=== PATIENT | female | born 1955 | race Caucasian/White ===

== ENCOUNTER → 2020-04-25 | Outpatient (CLI) | payer OTHER ==
[2020-04-25 09:18] LABS: ALANINE AMINOTRANSFERASE 21 U/L (0-55); ALKALINE PHOSPHATASE 68 U/L (40-136); BILIRUBIN,TOTAL 0.4 MG/DL (0.1-1.0); BUN/CREATININE RATIO 16; CALCIUM 8.9 MG/DL (8.5-10.1); CARBON DIOXIDE 29 MMOL/L (21-32); CHLORIDE 101 MMOL/L (98-107); CREATININE SERUM 0.76 MG/DL (0.60-1.30); GFR ESTIMATED > 60; GLUCOSE 104 MG/DL (70-105); POTASSIUM 4.1 MMOL/L (3.6-5.0); SODIUM 141 MMOL/L (135-145); TOTAL PROTEIN 6.5 GM/DL (6.4-8.2)
[2020-04-25 09:19] LABS: ALBUMIN 3.8 GM/DL (3.2-4.5)
[2020-04-25 14:33] LABS: TRIGLYCERIDES 60 MG/DL (<150); VLDL CHOLESTEROL 12 MG/DL (5-40)
[2020-04-25 14:38] LABS: CHOLESTEROL 191 MG/DL (< 200)
[2020-04-25 14:39] LABS: HDL CHOLESTEROL 67 MG/DL (40-60)
== END ==
LOC: LAB FS 07:55
PROVIDERS: ATTEND Family Medicine
DX: I10 Essential (primary) hypertension (principal)
CPT/HCPCS: 36415; 80053; 80061

== ENCOUNTER → 2020-04-25 | Outpatient (CLI) | payer OTHER ==
[2020-04-25 09:13] LABS: POTASSIUM 3.9 MMOL/L (3.6-5.0); SODIUM 141 MMOL/L (135-145)
[2020-04-25 09:14] LABS: ALANINE AMINOTRANSFERASE 20 U/L (0-55); ALBUMIN 3.8 GM/DL (3.2-4.5); ALKALINE PHOSPHATASE 69 U/L (40-136); BILIRUBIN,TOTAL 0.4 MG/DL (0.1-1.0); BUN/CREATININE RATIO 15; CARBON DIOXIDE 28 MMOL/L (21-32); CHLORIDE 101 MMOL/L (98-107); GFR ESTIMATED > 60; GLUCOSE 101 MG/DL (70-105); TOTAL PROTEIN 6.4 GM/DL (6.4-8.2)
[2020-04-25 09:16] LABS: BASOPHILS % (AUTO) 1 % (0-10); EOSINOPHILS # (AUTO) 0.1 10^3/uL (0.0-0.3); EOSINOPHILS % (AUTO) 2 % (0-10); HEMATOCRIT 38 % (35-52); HEMOGLOBIN 12.9 G/DL (11.5-16.0); LYMPHOCYTES # (AUTO) 0.9 X 10^3 (1.0-4.0); LYMPHOCYTES % (AUTO) 23 % (12-44); MEAN CORPUSCULAR HEMOGLOBIN 32 PG (25-34); MEAN CORPUSCULAR HGB CONC 34 G/DL (32-36); MEAN CORPUSCULAR VOLUME 95 FL (80-99); MEAN PLATELET VOLUME 9.3 FL (7.4-10.4); MONOCYTES # (AUTO) 0.4 X 10^3 (0.0-1.0); MONOCYTES % (AUTO) 10 % (0-12); NEUTROPHILS # (AUTO) 2.5 X 10^3 (1.8-7.8); NEUTROPHILS % (AUTO) 64 % (42-75); PLATELET COUNT 300 10^3/uL (130-400); RED CELL DISTRIBUTION WIDTH 13.8 % (10.0-14.5)
[2020-04-25 09:17] LABS: BASOPHILS # (AUTO) 0.1 10^3/uL (0.0-0.1); ERYTHROCYTE SEDIMENTATION RATE 18 MM/HR (0-30)
== END ==
LOC: LAB FS 07:52
PROVIDERS: ATTEND Internal Medicine Rheumatology
DX: M05.9 Rheumatoid arthritis with rheumatoid factor, unspecified (principal)
CPT/HCPCS: 36415; 80053; 85025; 85652; 86141

== ENCOUNTER → 2021-06-10 | Outpatient (CLI) | payer MEDICARE ==
--- NOTE | 2021-06-10 14:56 | Diagnostic Imaging Report ---
INDICATION: Pain. FINDINGS: The alignment is normal. There are mild degenerative changes. There is no fracture or dislocation. Soft tissues are unremarkable. IMPRESSION: Mild degenerative changes, otherwise unremarkable. Dictated by: Dictated on workstation # [id number]
== END ==
LOC: RAD FS 10:22
PROVIDERS: ATTEND Nurse Practitioner
DX: M19.071 Primary osteoarthritis, right ankle and foot (principal)
CPT/HCPCS: 73630

== ENCOUNTER → 2022-06-10 | Outpatient (CLI) | payer MEDICARE ==
[2022-06-10 09:29] LABS: BILIRUBIN,TOTAL 0.5 MG/DL (0.1-1.0); CALCIUM 9.3 MG/DL (8.5-10.1); CREATININE SERUM 0.69 MG/DL (0.60-1.30); POTASSIUM 3.8 MMOL/L (3.6-5.0)
[2022-06-10 09:30] LABS: TOTAL PROTEIN 6.7 GM/DL (6.4-8.2)
== END ==
LOC: LAB FS 07:54
PROVIDERS: ATTEND Family Medicine
DX: I10 Essential (primary) hypertension (principal); E78.5 Hyperlipidemia, unspecified
CPT/HCPCS: 36415; 80053; 80061

== ENCOUNTER 2022-11-26 03:43 | Emergency (ER) | payer MEDICARE ==
[2022-11-26] MEDS ORDERED: methylPREDNISolone 80 MG/ML (DEPO MEDROL) VIAL IM STA (04:00)
--- NOTE | 2022-11-26 04:04 | ED General ---
General Chief Complaint: Lower Extremity Stated Complaint: L LEG/KNEE,BODY ACHES Nursing Triage Note: Pt states she was diagnosed with a viral illness at Urgent Care on Thursday. Pt presents tonight with left knee pain. Pt states she has Rheumatoid Arthritis Source of Information: Patient, Spouse History of Present Illness Date Seen by Provider: Nov 26, 2022 Time Seen by Provider: 03:44 Initial Comments 67 yo female presenting with complaints having body aches, low-grade temperature, sore throat, nasal drainage, cough, nausea since last Thursday. She did go to urgent care on Thursday and they did a swab that was negative for COVID and influenza. They were told that she had a viral illness. She has had increasing joint and body aches beyond her normal rheumatoid arthritis. She has had another flareup of rheumatoid arthritis in the past that caused similar pain. She has been having trouble sleeping because of the pain. Her left knee has been more sore going up into her groin. She has increased pain with trying to move her knee. Left knee has been the focus of her rheumatoid arthritis pain in the past. She has had some improvement when she had to get a steroid in the past. She has an appointment to see her document control supervisor next week but with the pain being worse tonight it was to the point that she was having trouble walking since her left knee was hurting to bend. She denies any trauma or fall or injury to the knee or leg. Timing/Duration: 1 Week Severity: Severe Modifying Factors: worse with Movement Associated Systoms: No Chest Pain; Cough; No Diaphoresis; Fever/Chills (low grade fever), Headaches, Loss of Appetite, Malaise, Nausea/Vomiting (nausea but no emesis), Rash; No Seizure, No Shortness of Air, No Syncope, No Weakness Allergies and Home Medications Allergies Coded Allergies: No Known Drug Allergies (Unverified , 11/26/22) Patient Home Medication List Home Medication List Reviewed: Yes Review of Systems Review of Systems Constitutional: see HPI EENTM: see HPI Respiratory: see HPI Cardiovascular: No chest pain Gastrointestinal: see HPI Genitourinary: No decreased output, No dysuria Musculoskeletal: see HPI, joint pain (generalized body aches and joint pains, worse in left knee and hip) Skin: see HPI Psychiatric/Neurological: No Symptoms Reported Hematologic/Lymphatic: Denies Blood Clots Past [id number]-Ogncqt Hx Patient Social History Tobacco Use?: No Use of E-Cig and/or Vaping dev: No Substance use?: No Alcohol Use?: No Pt feels they are or have been: No Past Medical History Surgery/Hospitalization HX: Rheumatoid Arthritis Physical Exam Vital Signs Vital Signs - First Documented 11/26/22 03:45 Temp 36.7 Pulse 94 Resp 18 B/P (MAP) 144/70 (94) Pulse Ox 98 O2 Delivery Room Air Capillary Refill : Less Than 3 Seconds Height, Weight, BMI Height: '" Weight: lbs. oz. kg; BMI Method: General Appearance: No Apparent Distress, Chronically ill HEENT: PERRL/EOMI; No Moist Mucous Membranes (slightly dry mucous membranes) Respiratory: Chest Non Tender, Lungs Clear, Normal Breath Sounds, No Accessory Muscle Use, No Respiratory Distress Cardiovascular: Regular Rate, Rhythm, Normal Peripheral Pulses Extremity: Normal Capillary Refill, No Calf Tenderness, No Pedal Edema, Other (tender to palpation on the left knee and increased pain with range of motion. ) Neurologic/Psychiatric: Alert, Oriented x3, escape wheel tooth cutter II-XII Norm as Tested Skin: Normal Color, Warm/Dry Progress/Results/Core Measures Suspected Sepsis SIRS Temperature: Pulse: 94 Respiratory Rate: 18 Blood Pressure 144 /70 Mean: 94 Results/Orders My Orders Orders - TITO LEWIS MD Dexamethasone Injection (Decadron Inje (11/26/22 04:00) Methylprednisolone Acetate Inj (Depo-Med (11/26/22 04:00) Vital Signs/I&O 11/26/22 03:45 Temp 36.7 Pulse 94 Resp 18 B/P (MAP) 144/70 (94) Pulse Ox 98 O2 Delivery Room Air Capillary Refill : Less Than 3 Seconds Blood Pressure Mean: 94 Progress Note : Progress Note differential diagnosis of rheumatoid arthritis flare, viral syndrome, general body aches, septic arthritis. On physical exam she did not have signs of a septic joint such as increased warmth or redness to the joint. Since she reports that this has caused pain with rheumatoid flare in the past had improved with steroids I did discuss with her I could administer steroid injections to try and help with her general body aches and rheumatoid flare. I did discuss repeating the nasal swab to check for COVID/influenza however her symptoms have been present for over a week so even if it was positive and different than the test she had on Thursday she would be outside of an option normal treatment window for the antiviral medications. We will continue with symptomatic care and she could take acetaminophen in addition to the steroid injections. She is already taking methotrexate and injections for her RA. She has an appointment to see her document control supervisor next week. I discussed with her that xrays would not be helpful since she had no trauma to the knee or leg. If it is just the rheumatoid arthritis flared up from in flammation with the viral illness then the steroids will help the most. I also discussed option of taking short term opioid for additional pain control but she felt that would be too much for her system and body to handle so she opted to stay with Acetaminophen. Counseled to avoid Ibuprofen or OTC NSAIDS while the steroids are in her system over the next 7 to 10 days. Departure Impression Primary Impression: Acute viral syndrome Additional Impression: Rheumatoid arthritis flare Disposition: HOME, SELF-CARE Condition: Stable Departure-Patient Inst. Decision time for Depature: 04:02 Referrals: CORDELIA ANGEL MD (PCP) Primary Care Physician Patient Instructions: Viral Syndrome (DC), Rheumatoid Arthritis Add. Discharge Instructions: Continue to drink plenty of fluids and take your regular medicines. The steroid shots from this morning of Dexamethasone 10 mg and Depo-Medrol 80 mg will help with the pain and inflammation of Rheumatoid Flare from the viral infection. Check with your Rheumatology doctor for continued pain and symptoms. All discharge instructions reviewed with patient and/or family. Voiced understanding. TITO LEWIS MD Nov 26, 2022 04:04
[2022-11-26 04:09] VITALS: BP 144/70
== END 2022-11-26 04:09 | disposition home or self-care (01) ==
LOC: EDUNIT# 03:43 → ER FS 03:44
DX: B34.9 Viral infection, unspecified (principal); M06.9 Rheumatoid arthritis, unspecified; R05.9 Cough, unspecified; R11.0 Nausea; Z28.310 Unvaccinated for COVID-19
CPT/HCPCS: 99284